=== PATIENT | female | born 1955 | race Caucasian/White ===

== ENCOUNTER → 2021-02-16 00:41 | Outpatient (CLI) | payer MEDICARE, SELFPAY ==
[2021-02-16 20:36] LABS: SARS-CoV-2 RNA PCR Negative
== END ==
PROVIDERS: Visit Provider Internal Medicine Critical Care Medicine
DX: Z20.822 Contact with and (suspected) exposure to COVID-19 (principal)
CPT/HCPCS: C9803; U0003; U0005

== ENCOUNTER 2021-02-17 13:30 | Outpatient (CLI) | payer MEDICARE, SELFPAY ==
--- NOTE | 2021-02-18 11:30 | WPDPFTINT ---
PFT Procedure Performed PFT Procedure Performed Spirometry with Pre/Post Bronchodilator Plethysmography (Lung Vol) Diffusing Cap (DLCO) Flow Vol Loop PFT Interpretation This is a pulmonary function test with pre and post-bronchodilator spirometry, plethysmography and diffusing capacity. The test was performed and results interpreted in accordance with the 2019 and 2005 ATS/ERS Task Force guidelines respectively using the Global Lung Function Initiative-2012 reference equations. Patient demonstrated good effort and cooperation. Reproducibility criteria were met. The quality of the pre bronchodilator spirometry maneuver was Grade A and post bronchodilator spirometry maneuver was Grade A. Findings: Spirometry: the contour of the inspiratory and expiratory flow tracing are normal. The pre bronchodilator FVC is 2.63 L, 92% predicted. The pre bronchodilator FEV1 is 2.12 L, 94% predicted. The FEV1: FVC ratio was 81%. The post bronchodilator FVC is 2.69 L, representing a 2% increase. The post bronchodilator FEV1 is 2.21 L, representing a 4% increase. Plethysmography: The total lung capacity is 4.29 L, 87% predicted. The functional residual capacity is 1.80 L, 65% predicted. The residual volume is 1.57 L, 77% predicted. Diffusing capacity: The absolute diffusion capacity is 13.8, 67% predicted. The diffusing capacity corrected for alveolar volume is 3.79, 86% predicted. Impression: The spirometry is normal without evidence of an obstructive abnormality. There is no significant improvement after inhaling a single dose of albuterol. The lung volumes are normal. The absolute diffusing capacity is mildly decreased and normalizes when corrected for alveolar volume. There are no prior studies for comparison
== END 2021-02-17 13:31 | disposition home or self-care (01) ==
PROVIDERS: PCP Internal Medicine; Visit Provider Internal Medicine Critical Care Medicine
DX: R06.02 Shortness of breath (principal)
CPT/HCPCS: 94060; 94726; 94729

== ENCOUNTER 2021-02-19 09:02 | Outpatient (CLI) | payer MEDICARE, SELFPAY ==
--- NOTE | 2021-03-22 09:45 | WPDSLEEPSTUD ---
Sleep Study Date of Study: 02/19/21 Ordering Provider: Yessi Coon MD Interpreting Physician: Yessi Coon MD Sleep Study Type: Split Polysomnogram Height: 1.6 m Weight: 81.193 kg Body Mass Index: 31.6 Neck Circumference (inches): 15 Black: 13 Reason for Sleep Study Hypersomnia Sleep History Laura Kent is a 65 year old female with loud snoring and poor sleep for years. She has been on oxygen at night since August 2020. There is a family history with her brother and father having sleep apnea. Frequently has trouble sleeping with a cold, rarely wakes at night gasping for breath, rarely sweats excessively at night, and never notices her heart pounding at night. Occasionally falls asleep in the day, rarely involuntarily, rarely while driving. There is no loss of muscle tone with string emotion. She rarely feels paralyzed oin waking or falling asleep. She rarely has daytime difficulties due to excessive sleepiness. She frequently grinds her teeth during sleep. She rarely is bothered by pain during the day and does not awaken due to pain at night. She rarely kicks at night rarely has crawling and aching feelings in her legs. She rarely has morning jaw pain. Bedtime 11:00 p.m., takes a few hours to fall asleep, wakes 3-5 times, turns and tosses a lot and wakes at 5-6 in the morning. Her weekend schedule is the same. She takes naps. Naps are not refreshing. She occasionally has morning headaches and rarely awakens feeling refreshed habits: Quit tobacco 8 years ago. Caffeine 1 cup daily. No alcohol or recreational drugs. [facility] [place] Past Medical History Medical History (Updated 03/22/21 @ 10:52 by Yessi Coon MD) Chronic depression Hyperlipidemia Hypertension Hypothyroidism Peripheral neuropathy Family History Family History (Updated 01/26/21 @ 13:35 by Yessi Coon MD) Sibling Obstructive sleep apnea Son Alcohol abuse Hypertension Depression Father Alcohol abuse Hypertension Grandparent Alcohol abuse Cancer Hypertension Depression Mother Cancer Depression Heart disease Cerebrovascular accident Thyroid disorder Daughter Thyroid disorder Social History Social History (Updated 01/26/21 @ 11:36 by Yessi Coon MD) Social History: 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 Lives alone. Quit smoking 8 years ago. 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 with the [employer] Medications Home Medications Medication Instructions Recorded Confirmed Type diphenhydramine HCl 25 mg capsule 25 mg PO QHS 01/26/21 History fluoxetine 40 mg capsule 40 mg PO DAILY 01/26/21 History irbesartan 150 mg tablet 150 mg PO DAILY 01/26/21 History levothyroxine 100 mcg tablet 100 mcg PO DAILY 01/26/21 History metoprolol succinate 50 mg 50 mg PO DAILY 01/26/21 History tablet,extended release 24 hr rosuvastatin 20 mg tablet 20 mg PO DAILY 01/26/21 History Sleep Procedure This test was performed using the [employer] multiple channel system including EOG, EEG, submental EMG, EKG, nasal and oral airflow using thermistors and nasal pressure sensors, chest and abdominal belts for body position data, and pulse oximetry. Video monitoring was also performed. The study was scored using CMS guidelines. After the baseline portion the patient met criteria for a titration with an apnea-hypopnea index of 18.5. She used a medium AirFit F20 fullface mask and heated humidifier starting at a pressure of 5 and increasing to 14 cm Normally she wears oxygen at night but she did not require during the b
[2021-03-22 10:51] VITALS: BMI 31.6
== END 2021-02-20 06:37 | disposition home or self-care (01) ==
LOC: ANHCSM 09:05
PROVIDERS: PCP Internal Medicine; Visit Provider Internal Medicine Critical Care Medicine
DX: G47.33 Obstructive sleep apnea (adult) (pediatric) (principal); G47.10 Hypersomnia, unspecified; G47.34 Idiopathic sleep related nonobstructive alveolar hypoventilation
CPT/HCPCS: 95811

== ENCOUNTER 2021-06-01 10:00 | Outpatient (CLI) | payer MEDICARE, SELFPAY ==
--- NOTE | ~2021-06-01 | CT_ITS ---
EXAMINATION: CT lung screening DATE: 06/01/2021 10:39 INDICATION: Personal history of nicotine dependence TECHNIQUE: Computed tomography (CT) of the chest was performed without intravenous contrast. The dose -length product was 86.89 mGy-cm. Automated exposure control and iterative reconstruction technique w ere employed. COMPARISON: None FINDINGS: Heart size is normal. No significant pleural or pericardial effusion. No endobronchial lesi ons. No pneumothorax. No thoracic lymphadenopathy. There are a few scattered small pulmonary nodules measuring 2 mm or less . No focal airspace consolidation. Mild thoracic spondylosis. The upper abdomen is unremarkable. IMPRESSION: 1. Lung-RADS category 2: Benign appearance or behavior. Continue annual screening with noncontrast lo w-dose chest CT in 12 months. Reviewed, dictated and finalized at location A. 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 Lung-RADS category 2: Benign appearance or behavior. Continue annual screeni ng with noncontrast low-dose chest CT in 12 months.
== END 2021-06-01 10:01 | disposition home or self-care (01) ==
PROVIDERS: PCP Internal Medicine; Visit Provider Nurse Practitioner Family
DX: Z12.2 Encounter for screening for malignant neoplasm of respiratory organs (principal); Z87.891 Personal history of nicotine dependence
CPT/HCPCS: 71271

== ENCOUNTER 2022-09-05 13:14 | Outpatient (CLI) | payer OTHER, SELFPAY ==
--- NOTE | ~2022-09-05 | CT_ITS ---
EXAMINATION: CT lung screening DATE: 09/05/2022 14:25 INDICATION: Personal history of nicotine dependence, prior smoker with 40 to pack year history TECHNIQUE: Computed tomography (CT) of the chest was performed without intravenous contrast. The dose -length product (DLP) was 138.88 mGy-cm. Automated exposure control and iterative reconstruction tech [employer] were employed. COMPARISON: 06/01/2021 FINDINGS: There is mild emphysema. No pleural effusion or pneumothorax. Examination appears to be mos tly expiratory nature. No definite lung nodules are identified. There is mild atelectasis. No patholo gically enlarged thoracic lymph nodes are identified. The heart size is normal. There is a 2.5 cm cys t of the left kidney. There is mild thoracic spondylosis. IMPRESSION: 1. Lung-RADS category 1: Negative. Continue annual screening with noncontrast low-dose chest CT in 12 months. Reviewed, dictated and finalized at location B. 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 Lung-RADS category 1: Negative. Continue annual screening with noncontrast l ow-dose chest CT in 12 months.
== END 2022-09-05 13:15 | disposition home or self-care (01) ==
PROVIDERS: PCP Internal Medicine; Visit Provider Nurse Practitioner Family
DX: Z12.2 Encounter for screening for malignant neoplasm of respiratory organs (principal); Z87.891 Personal history of nicotine dependence
CPT/HCPCS: 71271

== ENCOUNTER 2023-10-11 13:17 | Outpatient (CLI) | payer OTHER, SELFPAY ==
--- NOTE | ~2023-10-11 | CT_ITS ---
EXAMINATION: CT lung screening DATE: 10/11/2023 13:37 INDICATION: Personal history of nicotine dependence TECHNIQUE: Computed tomography (CT) of the chest was performed without intravenous contrast. Automate d exposure control and iterative reconstruction technique were employed. Exam dose: 153.38 mGy-cm to judy exam DLP. COMPARISON: September 05, 2022 CT lung screening FINDINGS: Normal heart size. No thoracic aortic aneurysm. No pericardial or pleural effusion. No hilar or mediastinal mass lesion or lymphadenopathy. Stable small linear opacity in the posterior right upper lobe (series 4 image 29). Mild infiltrate and/or atelectasis in the dependent lower lobes, right greater than left. No pulmonary mass lesion. Normal morphology of the adrenal glands. Degenerative disease of the lower cervical spine. Diffuse idiopathic skeletal hyperostosis of the tho racic spine. No suspicious osteolytic or osteoblastic lesions. IMPRESSION: Lung RADS category 1: Negative Recommendation: [address] lung screening Reviewed, dictated and finalized at Location [facility]. Reviewed, dictated and finalized at location B.
== END 2023-10-11 13:18 | disposition home or self-care (01) ==
PROVIDERS: PCP Internal Medicine; Visit Provider Nurse Practitioner Family
DX: Z12.2 Encounter for screening for malignant neoplasm of respiratory organs (principal); Z87.891 Personal history of nicotine dependence
CPT/HCPCS: 71271

== ENCOUNTER 2025-06-26 13:59 | Outpatient (CLI) | payer OTHER, SELFPAY ==
--- NOTE | ~2025-06-26 | CT_ITS ---
EXAMINATION: CT lung screening DATE: 06/26/2025 14:23 INDICATION: Personal history of nicotine dependence TECHNIQUE: Computed tomography (CT) of the chest was performed without intravenous contrast. The dose-length product was 154.20 mGy-cm. COMPARISON: None FINDINGS: No significant pleural or pericardial effusion. No thoracic lymphadenopathy. There is mild atherosclerosis. Heart size normal. There is a left renal cyst. There is dependent atelectasis. No suspicious pulmonary nodules or masses. Mild thoracic spondylosis. IMPRESSION: 1. Lung-RADS category 1: Negative. Continue annual screening with noncontrast low-dose chest CT in 12 months. Reviewed, dictated and finalized at location I. OPERATOR IMPRESSION: 1. Lung-RADS category 1: Negative. Continue annual screening with noncontrast l ow-dose chest CT in 12 months.
== END 2025-06-26 14:00 | disposition home or self-care (01) ==
PROVIDERS: PCP Internal Medicine; Visit Provider Nurse Practitioner Family
DX: Z12.2 Encounter for screening for malignant neoplasm of respiratory organs (principal); Z87.891 Personal history of nicotine dependence
CPT/HCPCS: 71271